=== PATIENT | female | born 1955 | race Caucasian/White ===

== ENCOUNTER 2020-05-13 07:45 | Inpatient (IN) | payer MEDICARE, MEDICAID ==
[2020-05-04 16:42] LABS: BASOPHILS % (AUTO) 0.7 % (0-1); EOSINOPHILS % (AUTO) 0.6 % (0-6); LYMPHOCYTES # (AUTO) 1.4 X10'3 (1.1-4.8); LYMPHOCYTES % (AUTO) 25.6 % (21-51); MEAN CORPUSCULAR HEMOGLOBIN 32.9 PG (27.0-31.0); MEAN CORPUSCULAR HGB CONC 33.5 g/dL (33.0-36.5); MEAN CORPUSCULAR VOLUME 98.2 FL (78-98); MEAN PLATELET VOLUME 8.7 FL (7.4-10.4); MONOCYTES # (AUTO) 0.3 X10'3 (0-0.9); NEUTROPHILS # (AUTO) 3.8 X10'3 (1.8-7.7); NEUTROPHILS % (AUTO) 68.1 % (42-75); PRE OP HEMATOCRIT 38.6 % (35.0-45.0); PRE OP HEMOGLOBIN 12.9 g/dL (12.0-16.0); PRE OP PLATELET COUNT 264 X10'3 (140-440); RED BLOOD COUNT 3.93 X10'6 (4.20-5.60); RED CELL DISTRIBUTION WIDTH 13.2 % (11.5-14.5)
[2020-05-04 16:44] LABS: PRE OP PROTIME 10.2 SECONDS (9.0-12.0)
[2020-05-04 16:47] LABS: ALBUMIN 4.6 G/DL (3.4-5.0); ALBUMIN/GLOBULIN RATIO 1.4 (1.1-1.5); ALKALINE PHOSPHATASE 67 IU/L (46-116); BLOOD UREA NITROGEN 10 MG/DL (7-18); BUN/CREATININE RATIO 13.2 (6.6-38.0); CALCIUM 9.2 MG/DL (8.5-10.1); CHLORIDE 105 MMOL/L (99-107); CREATININE 0.76 MG/DL (0.40-0.90); PRE OP ALT 17 U/L (30-65); PRE OP ANION GAP 13 (8-16); PRE OP AST 21 U/L (10-37); PRE OP BILIRUB, TOTAL 0.5 MG/DL (0.0-1.0); PRE OP GLUCOSE 88 MG/DL (70-104); PRE OP POTASSIUM 3.7 MMOL/L (3.4-5.1); PRE OP SODIUM 145 MMOL/L (135-145); TOTAL PROTEIN 7.8 G/DL (6.4-8.2); eGFR 76 ML/MIN
[~2020-05-13] VITALS: Ht 167.6 cm; Wt 65.8 kg
[2020-05-13] VITALS (19 sets, daily range): BP systolic 98–149; BP diastolic 47–86
[~2020-05-13 07:45] MED LIST: ALPR-624 PO; AMLO2.5T2 PO; ASPI-611 PO; ATOR40TA PO; CITA20TA28 PO; LOSA50TA3 PO; PRAZ5CAP PO; QUET-1 PO; TEMA15CA5 PO; TIZA4TAB11 PO; VANCOMYCIN INJ 1000 MG in NORMAL SALINE 250ml IV.SOLN IV ONE; cefazolin/dext.iso 2gm/50ml 50 ML IV ONE; famotidine 20mg tablet PO ONE; ringers solution, lacted 1,000 ML IV SCH
[2020-05-13] MEDS ORDERED: ALPRAZolam 0.5mg tablet PO ONE (08:30)
[2020-05-13] MEDS ORDERED: ceFAZolin 1000mg inj ONE (09:44)
[2020-05-13] MEDS ORDERED: epiNEPHrine 1 mg/ml inj ONE (09:44)
[2020-05-13] MEDS ORDERED: ketorolac trometh. 30mg/ml inj. ONE (09:44)
[2020-05-13] MEDS ORDERED: ROPIVAcaine 0.5% (5mg/ml) 30ml vial ONE (09:44)
[2020-05-13] MEDS ORDERED: morphine 10mg/ml inj. ONE (09:44)
[2020-05-13] MEDS ORDERED: Thrombin (Bovine) 5,000 unit vial TP ONE (09:45)
[2020-05-13] MEDS ORDERED: tranexamic acid inj. 1,000 MG in normal saline 100ml IV soln 100 ML IV ONE ×2 (10:35→18:00)
[2020-05-13] MEDS ORDERED: tetracaine 1% (10mg/ml) pres. free inj. ONE (10:37)
[2020-05-13] MEDS ORDERED: MIDAZolam 1mg/ml 10ml vial ONE (10:38)
[2020-05-13] MEDS ORDERED: fentaNYL/PF 50MCG/1 ML 2ML syringe ONE ×2 (10:38→15:15)
[2020-05-13] MEDS ORDERED: propofol inj 20 ML IV ONE ×3 (10:59→13:25)
[2020-05-13] MEDS ORDERED: ringers solution, lacted 1,000 ML IV SCH (11:36)
[2020-05-13] MEDS ORDERED: proCHLORperazine 10 MG/2 ml inj IV PRN (11:40)
[2020-05-13] MEDS ORDERED: meperidine/PF 25mg/ml syringe IV PRN ×2 (11:40)
[2020-05-13] MEDS ORDERED: ondansetron/PF 4mg/2ml inj IV PRN ×2 (11:40→15:00)
[2020-05-13] MEDS ORDERED: morphine 2 MG/ML inj. syringe IV PRN (11:40)
[2020-05-13] MEDS ORDERED: MIDAZolam 5mg/5ml vial ONE (12:18)
[2020-05-13] MEDS ORDERED: vancomycin 1,000mg inj ONE (14:37)
[2020-05-13] MEDS ORDERED: bisacodyl 10mg suppository rectal RC PRN (15:00)
[2020-05-13] MEDS ORDERED: diphenhydrAMINE 25mg capsule PO PRN ×2 (15:00)
[2020-05-13] MEDS ORDERED: HYDROmorphone inj. 0.5 MG/0.5 ML DISP.SYRIN IV PRN (15:00)
[2020-05-13] MEDS ORDERED: acetaminophen 325mg tablet PO PRN (15:00)
[2020-05-13] MEDS ORDERED: oxyCODONE IR 5mg (immed. release) tablet PO PRN (15:00)
[2020-05-13] MEDS ORDERED: magnesium hydroxide 30ml (MOM) UD suspension PO PRN (15:00)
--- NOTE | 2020-05-13 15:34 | NUR ---
Received from OR via ORTHO BED WITH [facility] , accompanied by Anesthesiologist JOSE C and report given by Anesthesiolgist. PATIENT WITH VSS. MEDICATED FOR PAIN UPON ARRIVAL. PATIENT WITH ABDUCTION WEDGE IN PLACE AND SHELIA DRAIN. HIP WRAP AND POWDER PACK IN PLACE. Addendum: 05/13/20 at 1600 by Raffi Hunter RN, RN Amended: Links added.
[2020-05-13] MEDS: meperidine/PF 25mg/ml syringe IV PRN ×2 (15:51→16:11)
[2020-05-13] MEDS: morphine 4 MG/ML inj SYRINge IV PRN ×2 (15:54→16:35)
--- NOTE | 2020-05-13 16:54 | NUR ---
PATIENT A&OX4, DENIES PAIN, V/S WNL, NEUROVASCULAR CHECKS INTACT, , DRESSING TO RIGHT KNEE W/ COLD POWDER PACK ,SCD ON. F/C DRAINING CLEAR YELLOW URINE. SENSATION L4. PATIENT TAKEN TO WITH ALL BELONGINGS AND HOOKED UP TO MONITORS IN ROOM AND REPORT GIVEN TO PROJECT INSPECTORCARITO GRAHAM WHO HAS TAKEN OVER PATIENT CARE.BED LOW, CALL LIGHT PRESENT AND VSS. Addendum: 05/13/20 at 1712 by Raffi Macias - CARITO ARZATE Amended: Links added.
[2020-05-13] MEDS: HYDROmorphone 1 mg/ml syringe IV PRN ×2 (17:59→22:52)
--- NOTE | 2020-05-13 18:02 | NUR ---
SCANNER ON COMPUTER NOT WORKING, CHECK MEDS PRIOR TO ADMIN, CONTINUE TO MONITOR
[2020-05-13] MEDS: oxyCODONE IR 5mg (immed. release) tablet PO PRN (19:50)
[2020-05-13] MEDS: acetaminophen 325mg tablet PO SCH (20:00)
[2020-05-13] MEDS ORDERED: ALPRAZolam 0.5mg tablet PO SCH (20:00)
[2020-05-13] MEDS ORDERED: vancomycin/NS 1 GM ADD-VANTAGE 250 ML IV SCH (20:00)
[2020-05-13] MEDS: ceFAZolin 1GM/D5W- ADD-VANTAGE 50 ML IV SCH (20:14)
[2020-05-13] MEDS: prazosin 5mg capsule PO SCH (21:00)
[2020-05-13] MEDS: potassium cl 20mEq in 1/2 NS 1,000 ML IV SCH ×2 (22:58→23:31)
[2020-05-13] MEDS: sennosides 8.6mg tablet PO SCH (23:19)
[2020-05-13] MEDS: temazepam 15mg capsule PO SCH (23:19)
[2020-05-13] MEDS: gabapentin 300mg capsule PO SCH (23:19)
[2020-05-13] MEDS: quetiapine 100mg tablet PO SCH (23:19)
[2020-05-13] MEDS: tizanidine 4mg tablet PO SCH (23:31)
[2020-05-14] VITALS: BP 103/77
[2020-05-14 00:45] VITALS: BP 103/61
[2020-05-14] MEDS: ceFAZolin 1GM/D5W- ADD-VANTAGE 50 ML IV SCH (01:37)
[2020-05-14] MEDS: acetaminophen 325mg tablet PO SCH ×4 (02:00→19:05)
[2020-05-14] MEDS: oxyCODONE IR 5mg (immed. release) tablet PO PRN ×2 (03:43→10:13)
[2020-05-14 06:00] VITALS: BP 108/54
[2020-05-14 06:06] LABS: ANION GAP 8 (8-16); CHLORIDE 105 MMOL/L (99-107); SODIUM 139 MMOL/L (135-145)
[2020-05-14 06:08] LABS: BASOPHILS % (AUTO) 0.5 % (0-1); EOSINOPHILS % (AUTO) 0.2 % (0-6); HEMATOCRIT 27.4 % (35.0-45.0); HEMOGLOBIN 9.3 g/dl (12.0-16.0); LYMPHOCYTES # (AUTO) 0.5 X10'3 (1.1-4.8); LYMPHOCYTES % (AUTO) 4.6 % (21-51); MEAN CORPUSCULAR HEMOGLOBIN 33.8 PG (27.0-31.0); MEAN CORPUSCULAR HGB CONC 33.9 g/dL (33.0-36.5); MEAN CORPUSCULAR VOLUME 99.9 FL (78-98); MEAN PLATELET VOLUME 8.8 FL (7.4-10.4); MONOCYTES # (AUTO) 0.4 X10'3 (0-0.9); NEUTROPHILS # (AUTO) 9.2 X10'3 (1.8-7.7); NEUTROPHILS % (AUTO) 90.7 % (42-75); PLATELET COUNT 184 X10'3 (140-440); RED BLOOD COUNT 2.74 X10'6 (4.20-5.60); RED CELL DISTRIBUTION WIDTH 13.6 % (11.5-14.5); WHITE BLOOD COUNT 10.1 X10'3 (4.5-11.0)
[2020-05-14] MEDS: potassium cl 20mEq in 1/2 NS 1,000 ML IV SCH ×3 (06:58→23:07)
--- NOTE | 2020-05-14 07:18 | NUR ---
Patient in room ORTHO 4023. I have received report from [place] and had the opportunity to ask questions and assume patient care.
[2020-05-14] MEDS: amLODIPine 5mg tablet PO SCH (08:00)
[2020-05-14] MEDS: losartan 50mg tablet PO SCH (08:00)
[2020-05-14] MEDS: gabapentin 300mg capsule PO SCH ×3 (08:13→20:21)
[2020-05-14] MEDS: tizanidine 4mg tablet PO SCH ×3 (08:14→23:06)
[2020-05-14] MEDS: citalopram 20mg tablet PO SCH (08:15)
[2020-05-14] MEDS: atorvastatin 20mg tablet PO SCH (08:15)
[2020-05-14] MEDS: ALPRAZolam 0.5mg tablet PO SCH ×2 (08:16→19:04)
[2020-05-14] MEDS: enoxaparin 30mg/0.3ml syringe SQ SCH (08:17)
[2020-05-14 10:00] VITALS: BP 104/55
--- NOTE | 2020-05-14 10:24 | NUR ---
Student documentation: I have reviewed and agree with all interventions, assessments performed and documented by [].
--- NOTE | 2020-05-14 10:30 | NUR ---
patient stated pain has gone up to a 7, requested pain meds Addendum: 05/14/20 at 1031 by Cookie STANELY Amended: Links added.
--- NOTE | 2020-05-14 10:35 | NUR ---
Patient had Rhonchi present on expiratory, did two coughs and lungs were clear Addendum: 05/14/20 at 1036 by Cookie STANLEY Amended: Links added.
--- NOTE | 2020-05-14 11:16 | NUR ---
Rhonchi present on expiratory breath, patient coughed twice and lung sounds were clear Addendum: 05/14/20 at 1118 by Cookie STANLEY Amended: Links added.
--- NOTE | 2020-05-14 12:26 | NUR ---
Joint Replacement Consult: Pt seen by RD for written/verbal high protein ed w/ RD contact information provided. Pt reports nausea this AM impacting PO requesting change in pain medications; RD notified RN. Pt is agreeable to chocolate ensure pudding BIDLD; dietary notified. Addendum: 05/14/20 at [address] Vásquez RD Amended: Links added.
[2020-05-14] MEDS ORDERED: HYDROcodone/acetaminophen 5mg/325mg tablet PO PRN (13:50)
[2020-05-14] MEDS: HYDROcodone/acetaminophen 10/325mg tab PO PRN ×2 (16:20→20:22)
--- NOTE | 2020-05-14 17:15 | NUR ---
PAGER ID: [phone] MESSAGE: SORAIDA [id number] Vipul. CT called, recommending MRI of neck instead of CT. CHERYL [id number]
[2020-05-14 18:00] VITALS: BP 101/55
--- NOTE | 2020-05-14 18:08 | NUR ---
Problems reprioritized. Patient report given, questions answered & plan of care reviewed with Candice ARZATE.
--- NOTE | 2020-05-14 18:26 | NUR ---
Patient in room ORTHO 4023. I have received report from Megan ARZATE and had the opportunity to ask questions and assume patient care.
[2020-05-14] MEDS: temazepam 15mg capsule PO SCH (20:20)
[2020-05-14] MEDS: prazosin 5mg capsule PO SCH (20:20)
[2020-05-14] MEDS: sennosides 8.6mg tablet PO SCH (20:21)
[2020-05-14] MEDS: quetiapine 100mg tablet PO SCH (20:21)
[2020-05-14 22:00] VITALS: BP 99/43
--- NOTE | 2020-05-14 23:44 | NUR ---
Patient has not voided since her ward was taken out around 1700. Bladder scan done which showed 260mL. Got patient up to the bedside commode but she was unable to void at this time. Will continue to monitor.
[2020-05-15] VITALS (15 sets, daily range): BP systolic 65–115; BP diastolic 35–75
[2020-05-15] MEDS: acetaminophen 325mg tablet PO SCH ×3 (02:00→14:00)
--- NOTE | 2020-05-15 06:10 | NUR ---
Patient in room ORTHO 4023. I have received report from CHANTEL ARZATE and had the opportunity to ask questions and assume patient care.
[2020-05-15 06:15] LABS: BASOPHILS % (AUTO) 0.3 % (0-1); EOSINOPHILS # (AUTO) 0.1 X10'3 (0-0.9); EOSINOPHILS % (AUTO) 2.6 % (0-6); HEMOGLOBIN 7.1 g/dl (12.0-16.0); LYMPHOCYTES # (AUTO) 0.6 X10'3 (1.1-4.8); LYMPHOCYTES % (AUTO) 12.6 % (21-51); MEAN CORPUSCULAR HEMOGLOBIN 33.2 PG (27.0-31.0); MEAN CORPUSCULAR HGB CONC 33.8 g/dL (33.0-36.5); MEAN CORPUSCULAR VOLUME 98.4 FL (78-98); MEAN PLATELET VOLUME 8.7 FL (7.4-10.4); MONOCYTES # (AUTO) 0.3 X10'3 (0-0.9); MONOCYTES % (AUTO) 6.4 % (2-12); NEUTROPHILS # (AUTO) 3.9 X10'3 (1.8-7.7); NEUTROPHILS % (AUTO) 78.1 % (42-75); PLATELET COUNT 138 X10'3 (140-440); RED BLOOD COUNT 2.13 X10'6 (4.20-5.60)
--- NOTE | 2020-05-15 06:20 | NUR ---
Problems reprioritized. Patient report given, questions answered & plan of care reviewed with Reuben ARZATE.
[2020-05-15] MEDS: HYDROcodone/acetaminophen 10/325mg tab PO PRN ×3 (06:52→18:06)
[2020-05-15] MEDS: potassium cl 20mEq in 1/2 NS 1,000 ML IV SCH ×2 (06:58→11:36)
[2020-05-15] MEDS: tizanidine 4mg tablet PO SCH ×2 (08:09→16:16)
[2020-05-15] MEDS: ALPRAZolam 0.5mg tablet PO SCH ×2 (08:11→20:25)
[2020-05-15] MEDS: gabapentin 300mg capsule PO SCH ×3 (08:12→20:25)
[2020-05-15] MEDS: amLODIPine 5mg tablet PO SCH (08:12)
[2020-05-15] MEDS: losartan 50mg tablet PO SCH (08:12)
[2020-05-15] MEDS: atorvastatin 20mg tablet PO SCH (08:12)
[2020-05-15] MEDS: citalopram 20mg tablet PO SCH (08:13)
[2020-05-15] MEDS: enoxaparin 30mg/0.3ml syringe SQ SCH (08:15)
--- NOTE | 2020-05-15 09:05 | NUR ---
Student Medication Administration: For this medication-pass time frame, all medication were reviewed, dispensed, administered and documented per hospital policy by Pamela Student Nurse.
[2020-05-15] MEDS: HYDROmorphone 1 mg/ml syringe IV PRN (10:20)
--- NOTE | 2020-05-15 13:58 | NUR ---
PAGER ID: [phone] MESSAGE: [id number] RE: [id number] IZABELLA SMITH PATIENT, GETTING BLOOD, HIGHEST BP I CAN GET IS 86/46 AFTER BOLUS TOO.
[2020-05-15] MEDS ORDERED: acetaminophen 325mg tablet PO PRN (15:00)
--- NOTE | 2020-05-15 16:57 | NUR ---
Student documentation: I have reviewed all interventions, assessments performed and documented by Pamela Student Nurse.
--- NOTE | 2020-05-15 18:10 | NUR ---
Problems reprioritized. Patient report given, questions answered & plan of care reviewed with MINERVA ARZATE.
[2020-05-15] MEDS: prazosin 5mg capsule PO SCH (19:58)
[2020-05-15] MEDS: quetiapine 100mg tablet PO SCH (20:25)
[2020-05-15] MEDS: temazepam 15mg capsule PO SCH (20:25)
[2020-05-15] MEDS: sennosides 8.6mg tablet PO SCH (20:26)
[2020-05-16] MEDS: tizanidine 4mg tablet PO SCH ×2 (00:11→09:53)
[2020-05-16] MEDS: HYDROcodone/acetaminophen 10/325mg tab PO PRN ×2 (05:42→09:38)
[2020-05-16 06:00] VITALS: BP 99/60
--- NOTE | 2020-05-16 06:15 | NUR ---
Problems reprioritized. Patient report given, questions answered & plan of care reviewed with CARITO Cummins.
[2020-05-16 06:40] LABS: BASOPHILS % (AUTO) 0.4 % (0-1); EOSINOPHILS # (AUTO) 0.2 X10'3 (0-0.9); EOSINOPHILS % (AUTO) 3.2 % (0-6); HEMATOCRIT 26.4 % (35.0-45.0); LYMPHOCYTES # (AUTO) 0.7 X10'3 (1.1-4.8); LYMPHOCYTES % (AUTO) 9.9 % (21-51); MEAN CORPUSCULAR HEMOGLOBIN 32.2 PG (27.0-31.0); MEAN CORPUSCULAR HGB CONC 34.1 g/dL (33.0-36.5); MEAN CORPUSCULAR VOLUME 94.4 FL (78-98); MEAN PLATELET VOLUME 8.9 FL (7.4-10.4); MONOCYTES # (AUTO) 0.5 X10'3 (0-0.9); MONOCYTES % (AUTO) 6.8 % (2-12); NEUTROPHILS # (AUTO) 5.5 X10'3 (1.8-7.7); NEUTROPHILS % (AUTO) 79.7 % (42-75); PLATELET COUNT 146 X10'3 (140-440); RED CELL DISTRIBUTION WIDTH 16.1 % (11.5-14.5); WHITE BLOOD COUNT 6.9 X10'3 (4.5-11.0)
[2020-05-16] MEDS: losartan 50mg tablet PO SCH (08:00)
[2020-05-16] MEDS: gabapentin 300mg capsule PO SCH (09:52)
[2020-05-16] MEDS: atorvastatin 20mg tablet PO SCH (09:52)
[2020-05-16] MEDS: citalopram 20mg tablet PO SCH (09:52)
[2020-05-16] MEDS: ALPRAZolam 0.5mg tablet PO SCH (09:53)
[2020-05-16] MEDS: enoxaparin 30mg/0.3ml syringe SQ SCH (09:54)
[2020-05-16 11:00] VITALS: BP 80/30
[2020-05-16 11:38] VITALS: BP 82/56
--- NOTE | 2020-05-16 11:49 | NUR ---
PAGER ID: [phone] MESSAGE: Maria [phone] [id number] Mali Calderon- her bp was low again, 74/30 automatic cuff- 82/56 manual. Slightly dizzy but Xanax, [place], Neurontin all on board. Still ok to transfer?
== END 2020-05-16 12:08 | DRG 467 ==
LOC: PAS IN 07:45 → UNDOADMIN 07:45 → EDSTATUS 10:00 → PAS IN 14:58 → ORTHO 4S 16:45 → PAS IN 16:45
PROVIDERS: ADMIT Orthopaedic Surgery; ATTEND Orthopaedic Surgery
PROC: 0SPS0JZ Removal of Synthetic Substitute from Left Hip Joint, Femoral Surface, Open Approach (ICD-10-PCS; 2020-05-13)
PROC: 0SPB09Z Removal of Liner from Left Hip Joint, Open Approach (ICD-10-PCS; 2020-05-13)
PROC: 0SUE09Z Supplement Left Hip Joint, Acetabular Surface with Liner, Open Approach (ICD-10-PCS; 2020-05-13)
PROC: 0SRS0JA Replacement of Left Hip Joint, Femoral Surface with Synthetic Substitute, Uncemented, Open Approach (ICD-10-PCS; principal; 2020-05-13 10:32)
PROC: 30233N1 Transfusion of Nonautologous Red Blood Cells into Peripheral Vein, Percutaneous Approach (ICD-10-PCS; 2020-05-15)
DX: T84.031A Mechanical loosening of internal left hip prosthetic joint, initial encounter (principal); D62 Acute posthemorrhagic anemia; Y79.2 Prosthetic and other implants, materials and accessory orthopedic devices associated with adverse incidents; F41.9 Anxiety disorder, unspecified; E78.5 Hyperlipidemia, unspecified; F17.210 Nicotine dependence, cigarettes, uncomplicated; F41.0 Panic disorder [episodic paroxysmal anxiety]; I10 Essential (primary) hypertension; Y92.89 Other specified places as the place of occurrence of the external cause; Z79.899 Other long term (current) drug therapy
CPT/HCPCS: 36415; 36430; 72170; 73501; 80051; 80053; 82948; 85025; 85610; 85730; 86870; 86885; 86900; 86901; 86920; 87070; 87075; 87081; 87102; 93005; 97110; 97116; 97162; 97530; 97535; A4215; A4618; A6449; A7000; A9272; C1758; C1762; C1776; G0378; J0171; J0690; J1170; J1650; J1885; J2175; J2250; J2270; J2405; J2704; J2795; J3010; J3370; J3480; J7120; P9016

== ENCOUNTER 2021-09-08 10:57 | Inpatient (IN) | payer MEDICARE, MEDICAID ==
[2021-09-02 16:01] LABS: BASOPHILS % (AUTO) 0.8 % (0-1); EOSINOPHILS # (AUTO) 0.1 X10'3 (0-0.9); EOSINOPHILS % (AUTO) 1.3 % (0-6); LYMPHOCYTES # (AUTO) 1.2 X10'3 (1.1-4.8); LYMPHOCYTES % (AUTO) 21.5 % (21-51); MEAN CORPUSCULAR HEMOGLOBIN 32.2 PG (27.0-31.0); MEAN CORPUSCULAR HGB CONC 33.4 g/dL (33.0-36.5); MEAN CORPUSCULAR VOLUME 96.6 FL (78-98); MEAN PLATELET VOLUME 8.2 FL (7.4-10.4); MONOCYTES # (AUTO) 0.2 X10'3 (0-0.9); MONOCYTES % (AUTO) 4.2 % (2-12); NEUTROPHILS # (AUTO) 3.9 X10'3 (1.8-7.7); NEUTROPHILS % (AUTO) 72.2 % (42-75); PRE OP HEMATOCRIT 34.7 % (35.0-45.0); PRE OP HEMOGLOBIN 11.6 g/dL (12.0-16.0); PRE OP PLATELET COUNT 244 X10'3 (140-440); RED CELL DISTRIBUTION WIDTH 13.5 % (11.5-14.5)
[2021-09-02 16:16] LABS: ALBUMIN/GLOBULIN RATIO 1.2 (1.1-1.5); ALKALINE PHOSPHATASE 83 IU/L (46-116); BLOOD UREA NITROGEN 12 MG/DL (7-18); BUN/CREATININE RATIO 15.6 (6.6-38.0); CHLORIDE 109 MMOL/L (99-107); CREATININE 0.77 MG/DL (0.40-0.90); PRE OP ALT 13 U/L (30-65); PRE OP ANION GAP 11 (8-16); PRE OP AST 21 U/L (10-37); PRE OP BILIRUB, TOTAL 0.4 MG/DL (0.0-1.0); PRE OP GLUCOSE 91 MG/DL (70-104); PRE OP POTASSIUM 4.1 MMOL/L (3.4-5.1); PRE OP SODIUM 146 MMOL/L (135-145); TOTAL CARBON DIOXIDE 26.4 MMOL/L (24-32); TOTAL PROTEIN 7.3 G/DL (6.4-8.2); eGFR 75 ML/MIN
[~2021-09-08] VITALS: Ht 170.2 cm; Wt 65.8 kg
[2021-09-08] VITALS (16 sets, daily range): BP systolic 115–148; BP diastolic 60–78
[~2021-09-08 10:57] MED LIST changes: -ASPI-611 PO; +DUTA0.5C40 PO; +TRANEXAMIC ACID 1 GM IN NACL,ISO-OS 100 ML IV ONE; +VANCOMYCIN 1,500MG inj. 1,500 MG in normal saline 500ml IV soln 500 ML IV ONE; -VANCOMYCIN INJ 1000 MG in NORMAL SALINE 250ml IV.SOLN IV ONE; +albuterol 2.5 MG/3 ML nebule NEB PRN; +ceFAZolin 2gm in dextrose, iso 50 ML IV ONE; -cefazolin/dext.iso 2gm/50ml 50 ML IV ONE; -famotidine 20mg tablet PO ONE; -ringers solution, lacted 1,000 ML IV SCH; +vancomycin/NS 1 GM ADD-VANTAGE 250 ML X 1 DOSE IV ONE
[2021-09-08] MEDS ORDERED: diazepam 5mg tablet PO ONE (12:25)
[2021-09-08] MEDS ORDERED: famotidine 20mg tablet PO ONE (12:33)
[2021-09-08] MEDS ORDERED: ringers solution, lacted 1,000 ML IV SCH ×2 (12:47→15:20)
[2021-09-08] MEDS ORDERED: ALPRAZolam 0.5mg tablet PO ONE (13:20)
[2021-09-08] MEDS ORDERED: ondansetron/PF 4mg/2ml inj IV PRN ×2 (15:20→18:45)
[2021-09-08] MEDS ORDERED: morphine 4 MG/ML inj SYRINge IV PRN (15:20)
[2021-09-08] MEDS ORDERED: proCHLORperazine 10 MG/2 ml inj IV PRN (15:20)
[2021-09-08] MEDS ORDERED: meperidine/PF 25mg/ml syringe IV PRN ×2 (15:20)
[2021-09-08] MEDS ORDERED: morphine 2 MG/ML inj. syringe IV PRN (15:20)
[2021-09-08] MEDS ORDERED: vancomycin 1,000mg inj ONE (16:09)
[2021-09-08] MEDS ORDERED: ondansetron/PF 4mg/2ml inj ONE (16:20)
[2021-09-08] MEDS ORDERED: sevoflurane 250ml liquid IH ONE (16:20)
[2021-09-08] MEDS ORDERED: dexamethasone sod phosphate 10mg/ml inj ONE (16:20)
[2021-09-08] MEDS ORDERED: fentaNYL/PF 50MCG/1 ML 2ML syringe ONE (16:32)
[2021-09-08] MEDS ORDERED: MIDAZolam 1mg/ml 10ml vial ONE (16:32)
[2021-09-08] MEDS ORDERED: BUPIVAcaine/PF 7.5mg/ml (0.75%) 10ml vial ONE (16:33)
[2021-09-08] MEDS ORDERED: propofol inj 20 ML IV ONE (16:58)
[2021-09-08] MEDS ORDERED: acetaminophen 325mg tablet PO PRN (18:45)
[2021-09-08] MEDS ORDERED: diphenhydrAMINE 25mg capsule PO PRN ×2 (18:45)
[2021-09-08] MEDS ORDERED: tranexamic acid inj. 650 MG in normal saline 100ml IV soln 93.5 ML IV ONE (18:45)
[2021-09-08] MEDS ORDERED: oxyCODONE IR 5mg (immed. release) tablet PO PRN (18:45)
[2021-09-08] MEDS ORDERED: HYDROmorphone inj. 0.5 MG/0.5 ML DISP.SYRIN IV PRN (18:45)
[2021-09-08] MEDS ORDERED: bisacodyl 10mg suppository rectal RC PRN (18:45)
[2021-09-08] MEDS ORDERED: magnesium hydroxide 30ml (MOM) UD suspension PO PRN (18:45)
[2021-09-08] MEDS: meperidine/PF 25mg/ml syringe IV PRN ×2 (19:04→19:37)
[2021-09-08] MEDS ORDERED: LORazepam 2 mg/ml vial IV ONE (19:05)
[2021-09-08] MEDS: HYDROmorphone 1 mg/ml syringe IV PRN (19:40)
--- NOTE | 2021-09-08 19:55 | NUR ---
PT STATES MORE COMFORTABLE VSS NO DISTRESS MEETS CRITERIA TO DC TO ROOM CALLING REPORT TRANSPORTING PT TO ROOM VIA BED. Addendum: 09/08/21 at 1954 by Michelle Mccrary RN Amended: Links added.
[2021-09-08] MEDS ORDERED: vancomycin/NS 1 GM ADD-VANTAGE 250 ML IV SCH (20:00)
[2021-09-08] MEDS: acetaminophen 1,000mg/100ml IV 100 ML IV SCH (21:24)
[2021-09-08] MEDS: gabapentin 300mg capsule PO SCH (21:37)
[2021-09-08] MEDS: sennosides 8.6mg tablet PO SCH (21:37)
[2021-09-08] MEDS: ALPRAZolam 0.5mg tablet PO SCH (21:52)
[2021-09-08] MEDS: oxyCODONE IR 5mg (immed. release) tablet PO PRN (21:53)
[2021-09-08] MEDS: potassium cl 20mEq in 1/2 NS 1,000 ML IV SCH (21:53)
[2021-09-09] VITALS (8 sets, daily range): BP systolic 79–148; BP diastolic 40–71
[2021-09-09] MEDS: tizanidine 4mg tablet PO SCH ×3 (00:33→15:22)
[2021-09-09] MEDS: ceFAZolin/D5W- 1GM premix 50 ML IV SCH ×2 (00:34→08:03)
[2021-09-09] MEDS: prazosin 1mg capsule PO SCH ×2 (00:35→19:45)
[2021-09-09] MEDS: QUEtiapine 25mg tablet PO SCH ×3 (00:36→22:09)
[2021-09-09] MEDS: temazepam 15mg capsule PO SCH ×2 (00:45→19:45)
[2021-09-09] MEDS: acetaminophen 1,000mg/100ml IV 100 ML IV SCH ×3 (02:40→15:29)
[2021-09-09] MEDS: potassium cl 20mEq in 1/2 NS 1,000 ML IV SCH ×3 (02:45→18:45)
[2021-09-09] MEDS: oxyCODONE IR 5mg (immed. release) tablet PO PRN ×2 (03:58→08:00)
[2021-09-09] MEDS ORDERED: vancomycin/NS 1 GM ADD-VANTAGE 250 ML IV SCH (04:00)
[2021-09-09] MEDS: HYDROmorphone 1 mg/ml syringe IV PRN ×3 (05:46→15:23)
[2021-09-09 06:21] LABS: BASOPHILS % (AUTO) 0.1 % (0-1); EOSINOPHILS % (AUTO) 0 % (0-6); HEMATOCRIT 28.6 % (35.0-45.0); HEMOGLOBIN 9.6 g/dl (12.0-16.0); LYMPHOCYTES # (AUTO) 0.4 X10'3 (1.1-4.8); LYMPHOCYTES % (AUTO) 5.7 % (21-51); MEAN CORPUSCULAR HEMOGLOBIN 32.5 PG (27.0-31.0); MEAN CORPUSCULAR HGB CONC 33.5 g/dL (33.0-36.5); MEAN CORPUSCULAR VOLUME 97.1 FL (78-98); MEAN PLATELET VOLUME 8.7 FL (7.4-10.4); MONOCYTES # (AUTO) 0.3 X10'3 (0-0.9); MONOCYTES % (AUTO) 4.4 % (2-12); NEUTROPHILS # (AUTO) 5.7 X10'3 (1.8-7.7); NEUTROPHILS % (AUTO) 89.8 % (42-75); PLATELET COUNT 204 X10'3 (140-440); RED BLOOD COUNT 2.94 X10'6 (4.20-5.60); RED CELL DISTRIBUTION WIDTH 13.4 % (11.5-14.5); WHITE BLOOD COUNT 6.4 X10'3 (4.5-11.0)
--- NOTE | 2021-09-09 06:34 | NUR ---
Patient in room SPRING 345. I have received report from pat rn and had the opportunity to ask questions and assume patient care.
[2021-09-09 06:49] LABS: ANION GAP 8 (8-16); CHLORIDE 108 MMOL/L (99-107); SODIUM 143 MMOL/L (135-145)
[2021-09-09] MEDS: losartan 50mg tablet PO SCH (07:55)
[2021-09-09] MEDS: ALPRAZolam 0.5mg tablet PO SCH ×2 (07:56→19:45)
[2021-09-09] MEDS: gabapentin 300mg capsule PO SCH ×3 (07:56→21:27)
[2021-09-09] MEDS: citalopram 20mg tablet PO SCH (07:57)
[2021-09-09] MEDS: amLODIPine 5mg tablet PO SCH (07:58)
[2021-09-09] MEDS: atorvastatin 20mg tablet PO SCH (07:58)
[2021-09-09] MEDS: enoxaparin 40mg/0.4ml syringe SQ SCH (08:01)
[2021-09-09] MEDS: dutasteride 0.5 MG capsule PO SCH (08:03)
--- NOTE | 2021-09-09 11:49 | NUR ---
Joint Surgery Consult: Pt admit s/p R hip surgery. Pt seen by JASON for written/verbal high protein ed w/ RD contact information provided. RD encouraged pt to contact dietitian's office if further questions/concerns. Pt requests fruit cup [facility] to assist w/ BM prophylaxis declines prunes or prune juice w/ LBM 09/07 per EMR; dietary notified. Addendum: 09/09/21 at [address]ás[address] RD Amended: Links added.
[2021-09-09] MEDS ORDERED: HYDROcodone/acetaminophen 10/325mg tab PO PRN (12:00)
[2021-09-09] MEDS: HYDROcodone/acetaminophen 10/325mg tab PO PRN ×2 (12:38→17:16)
--- NOTE | 2021-09-09 18:11 | NUR ---
Problems reprioritized. Patient report given, questions answered & plan of care reviewed with светлана jacome.
--- NOTE | 2021-09-09 18:32 | NUR ---
Patient in room SPRING 346. I have received report from CARITO Sandra and had the opportunity to ask questions and assume patient care.
[2021-09-09] MEDS: acetaminophen 325mg tablet PO SCH ×2 (19:06→20:00)
--- NOTE | 2021-09-09 19:30 | NUR ---
Let Nelida Charge know pt BP manual 80/49. Called Dr. Gallegos advised to DC Brenden, change [place] 10 xs2 to only one [place] 10 Q4h. Held Restoril, Xanax and minpress due to low BP.
--- NOTE | 2021-09-09 21:05 | NUR ---
BP up from 80/49 to 103/53 and HR 73
[2021-09-09] MEDS: sennosides 8.6mg tablet PO SCH ×2 (21:27→22:08)
--- NOTE | 2021-09-09 22:03 | NUR ---
Spoke to Dr. Gallegos, patient has had over max amt of acetaminophen. Will start Tramadol for pain.
[2021-09-09] MEDS: traMADol 50MG tablet PO PRN (22:07)
[2021-09-09] MEDS: celeCOXIB 100mg capsule PO SCH (22:08)
[2021-09-10] MEDS: tizanidine 4mg tablet PO SCH ×2 (00:17→08:09)
[2021-09-10 01:45] VITALS: BP 100/50
[2021-09-10] MEDS: traMADol 50MG tablet PO PRN ×2 (01:47→08:16)
--- NOTE | 2021-09-10 01:56 | NUR ---
Patient's BP 100/50 HR 81 patient is threatening AMA due to inability to have anymore [place]. Patient is receiving Tramadol due to reaching max amount of acetaminophen.
[2021-09-10 01:58] VITALS: BP 100/50
[2021-09-10] MEDS: acetaminophen 325mg tablet PO SCH (02:00)
[2021-09-10] MEDS: potassium cl 20mEq in 1/2 NS 1,000 ML IV SCH (02:45)
--- NOTE | 2021-09-10 06:30 | NUR ---
Patient in room SPRING 346. I have received report from Elana ARZATE and had the opportunity to ask questions and assume patient care.
[2021-09-10 06:32] LABS: BASOPHILS % (AUTO) 0.3 % (0-1); EOSINOPHILS % (AUTO) 0.6 % (0-6); HEMATOCRIT 24.3 % (35.0-45.0); HEMOGLOBIN 8.4 g/dl (12.0-16.0); LYMPHOCYTES % (AUTO) 15.1 % (21-51); MEAN CORPUSCULAR HEMOGLOBIN 33.2 PG (27.0-31.0); MEAN CORPUSCULAR HGB CONC 34.6 g/dL (33.0-36.5); MEAN CORPUSCULAR VOLUME 95.9 FL (78-98); MEAN PLATELET VOLUME 8.5 FL (7.4-10.4); MONOCYTES # (AUTO) 0.4 X10'3 (0-0.9); MONOCYTES % (AUTO) 6.6 % (2-12); NEUTROPHILS # (AUTO) 4.9 X10'3 (1.8-7.7); NEUTROPHILS % (AUTO) 77.4 % (42-75); PLATELET COUNT 167 X10'3 (140-440); RED BLOOD COUNT 2.54 X10'6 (4.20-5.60); RED CELL DISTRIBUTION WIDTH 13.2 % (11.5-14.5); WHITE BLOOD COUNT 6.3 X10'3 (4.5-11.0)
--- NOTE | 2021-09-10 06:48 | NUR ---
Problems reprioritized. Patient report given, questions answered & plan of care reviewed with CARITO Rincon. Let Mckenzie know that pt had exceeded the maximum dose of acetaminophen and to hold all acetaminophen until talking to . Also advised Mckenzie of patient's low BPs.
[2021-09-10 08:00] VITALS: BP 127/59
[2021-09-10 08:01] VITALS: BP 127/59
[2021-09-10] MEDS: celeCOXIB 100mg capsule PO SCH (08:08)
[2021-09-10] MEDS: ALPRAZolam 0.5mg tablet PO SCH (08:08)
[2021-09-10] MEDS: atorvastatin 20mg tablet PO SCH (08:08)
[2021-09-10] MEDS: citalopram 20mg tablet PO SCH (08:10)
[2021-09-10] MEDS: losartan 50mg tablet PO SCH (08:11)
[2021-09-10] MEDS: gabapentin 300mg capsule PO SCH (08:12)
[2021-09-10] MEDS: amLODIPine 5mg tablet PO SCH (08:12)
[2021-09-10] MEDS: enoxaparin 40mg/0.4ml syringe SQ SCH (08:13)
[2021-09-10] MEDS: dutasteride 0.5 MG capsule PO SCH (10:04)
[2021-09-10] MEDS ORDERED: HYDROcodone/acetaminophen 10/325mg tab PO PRN (10:05)
--- NOTE | 2021-09-10 10:30 | NUR ---
0830: patient stated that she is in pain and wanted her [place], patient is agitated . patient has exceeded her max dose of acetaminophen (5300mg). Dr. Gallegos and Corina (PA) notified. 1030: Dr Gallegos OK to give 2 tab of [place] 10/325mg
[2021-09-10 12:00] VITALS: BP 86/46
[2021-09-10] MEDS ORDERED: HYDROcodone/acetaminophen 10/325mg tab PO ONE (13:40)
--- NOTE | 2021-09-10 14:20 | NUR ---
1215: Patient BP was 86/46, pulse: 69. Patient is asymptomatic. patient denies any dizziness, headache. Corina (JUDY) notified. Norvasc 5mg was D/C. I modified the D/c order in patient medication form that will be going with patient to the [facility]. 1355: Report was called in, spoke with Tanya, told her about the D/C of Norvasc 1415: Patient discharge in stable condition IV taken out. patient also given 2 tab of [place] per Corina (JUDY), before leaving, All personal item given to [facility] personnel. Patient left unit at 1415.
[2021-09-10] MEDS ORDERED: acetaminophen 325mg tablet PO PRN (18:45)
== END 2021-09-10 14:10 | DRG 470 ==
LOC: PAS IN 10:57 → UNDOADMIN 10:57 → PAS IN 19:07 → SUR 3N 20:20
PROVIDERS: ADMIT Orthopaedic Surgery; ATTEND Orthopaedic Surgery
PROC: 0SR901A Replacement of Right Hip Joint with Metal Synthetic Substitute, Uncemented, Open Approach (ICD-10-PCS; principal; 2021-09-08 16:20)
DX: M16.11 Unilateral primary osteoarthritis, right hip (principal); G89.29 Other chronic pain; Z20.822 Contact with and (suspected) exposure to COVID-19; I95.9 Hypotension, unspecified; R42 Dizziness and giddiness; T39.1X5A Adverse effect of 4-Aminophenol derivatives, initial encounter; Y92.230 Patient room in hospital as the place of occurrence of the external cause; R11.0 Nausea; Z79.899 Other long term (current) drug therapy
CPT/HCPCS: 36415; 72170; 73502; 76000; 80051; 80053; 82948; 85025; 86870; 86885; 86900; 86901; 86902; 86905; 86922; 87081; 87635; 93005; 94760; 97110; 97116; 97161; A4215; A4618; A6449; A7000; C1776; C9250; G0378; J0131; J0690; J1100; J1170; J1650; J2060; J2175; J2250; J2405; J2704; J3010; J3370; J3480; J3490; J7120; U0003; U0005

== ENCOUNTER 2025-03-12 10:45 | Outpatient (CLI) | payer MEDICARE, MEDICAID ==
[~2025-03-12 10:45] MED LIST changes: +CITA-178 PO; -CITA20TA28 PO; +LOSA-416 PO; -LOSA50TA3 PO; -TRANEXAMIC ACID 1 GM IN NACL,ISO-OS 100 ML IV ONE; -VANCOMYCIN 1,500MG inj. 1,500 MG in normal saline 500ml IV soln 500 ML IV ONE; -albuterol 2.5 MG/3 ML nebule NEB PRN; -ceFAZolin 2gm in dextrose, iso 50 ML IV ONE; +iohexol 350MG/ML 100ml bottle IV ONE; -vancomycin/NS 1 GM ADD-VANTAGE 250 ML X 1 DOSE IV ONE
== END 2025-03-12 23:59 | disposition home or self-care (01) ==
LOC: RAD 10:45
PROVIDERS: ATTEND Internal Medicine Interventional Cardiology
DX: I65.23 Occlusion and stenosis of bilateral carotid arteries (principal); E78.5 Hyperlipidemia, unspecified
CPT/HCPCS: 70498; Q9967